=== PATIENT | male | born 1970 | race Two or more races ===

== ENCOUNTER 2018-08-16 04:46 | Emergency (ER) | payer SELFPAY ==
[~2018-08-16] VITALS: Ht 165.1 cm; Wt 78.5 kg
[2018-08-16 06:50] VITALS: BP 134/84
== END 2018-08-16 07:59 | disposition home or self-care (01) ==
LOC: ER 04:46
DX: F41.9 Anxiety disorder, unspecified (principal); I10 Essential (primary) hypertension